=== PATIENT | male | born 1950 | race Caucasian/White ===

== ENCOUNTER 2016-08-16 11:42 | Inpatient (IN) | payer OTHER, BC ==
[~2016-08-16] VITALS: Ht 185.4 cm; Wt 158.3 kg
[~2016-08-16 11:42] MED LIST: ASTEPRO 0.15%30 ML NS; CYCLOBENZAPRINE10 MG PO; CYMBALTA60 MG PO; Cymbalta PO; DILAUDID4 MG PO; EXFORGE PO; FLOMAX0.4 MG PO; GLUCOTROL XL5 MG PO; HYDROCODON-ACE1 EAC8 PO; JANUMET 50/11 TABLET PO; Januvia PO; LASIX20 MG PO; LEVAQUIN750 MG PO; NAPROXEN500 M2 PO; OxyCONTIN PO; PRILOSEC40 MG PO; Prevacid PO; TRILIPIX135 MG PO
[2016-08-16 13:40] LABS: HEMATOCRIT 44.6 % (38.0-50.0); MCH 29.9 PG (29.0-34.0); MCHC 32.3 G/DL (30.0-36.0); MCV 92.5 FL (86-99); MEAN PLAT.VOLUME 9.2 uM^3 (9.0-12.4); PLATELET COUNT 325 K/uL (156-360); RBC DIS.WIDTH-CV 12.5 % (11.8-14.6); RBC DIS.WIDTH-SD 43.2 % (39-53); RED BLOOD COUNT 4.82 M/uL (4.00-5.50); WHITE BLOOD COUNT 14.8 K/uL (4.1-10.2)
[2016-08-16 13:56] LABS: CHLORIDE 96 mEq/L (99-109); POTASSIUM 4.1 mEq/L (3.7-5.4); SODIUM 137 mEq/L (136-147)
[2016-08-16 13:59] LABS: GLUCOSE 114 mg/dL (70-99)
[2016-08-16 14:00] LABS: ANION GAP 11 MEQ/L (2-14); D-DIMER ELISA > 4.00 mg/L FEU (< 0.57)
[2016-08-16 14:01] LABS: TOTAL BILIRUBIN 0.8 mg/dL (0.0-1.0)
[2016-08-16 14:02] LABS: ALKALINE PHOSPHATASE 121 IU/L (3-129); GFR ESTIMATE (CALCULATED) > 59 mL/min/
[2016-08-16 14:03] LABS: UREA NITROGEN (BUN) 29 mg/dL (9-23)
[2016-08-16 14:06] LABS: LIPASE 10 U/L (1.0-51.0); TROP-I INTERPRETATION NEGATIVE; TROPONIN-I < 0.01 ng/mL (0.0-0.30)
[2016-08-16 19:42] VITALS: BP 159/71
[2016-08-16 21:09] LABS: POINT-OF-CARE METER ID UU13113725
[2016-08-16 23:28] VITALS: BP 141/69
[2016-08-17 02:45] VITALS: BP 135/70
[2016-08-17 06:49] LABS: EOSINOPHIL (%) 0 % (0-5); HEMATOCRIT 37.5 % (38.0-50.0); IMMATURE GRANULOCYTE (%) 2.1 % (0.0-0.7); IMMATURE GRANULOCYTE COUNT 0.4 K/uL; MCH 29.8 PG (29.0-34.0); MCV 93.1 FL (86-99); MEAN PLAT.VOLUME 9.4 uM^3 (9.0-12.4); MONOCYTE (%) 4.4 % (3-12); MONOCYTE COUNT 0.8 K/uL (0-0.8); NEUTROPHIL (%) 88.2 % (45-76); PLATELET COUNT 379 K/uL (156-360); RBC DIS.WIDTH-CV 12.5 % (11.8-14.6); RED BLOOD COUNT 4.03 M/uL (4.00-5.50); WHITE BLOOD COUNT 19.3 K/uL (4.1-10.2)
[2016-08-17 06:54] LABS: ALKALINE PHOSPHATASE 119 IU/L (3-129); ANION GAP 10 MEQ/L (2-14); CHLORIDE 96 MEQ/L (99-109); GFR ESTIMATE (CALCULATED) > 59 mL/min/; POTASSIUM 4.7 MEQ/L (3.7-5.4); SAMPLE HEMOLYSIS CHECK 0; SAMPLE ICTERIC CHECK 0; SAMPLE LIPEMIA CHECK 0; SODIUM 138 MEQ/L (136-147); TOTAL BILIRUBIN 0.5 MG/DL (0.0-1.0); UREA NITROGEN (BUN) 30 mg/dL (9-23)
[2016-08-17 07:00] LABS: GLUCOSE 233 mg/dL (70-99)
[2016-08-17 07:25] VITALS: BP 127/91
[2016-08-17 07:40] LABS: INTER. NORMALIZED RATIO 1.2; PROTHROMBIN TIME 12.3 (9.2-11.2); PTT 25.1 (25-32)
[2016-08-17 15:44] VITALS: BP 140/89
[2016-08-17 21:04] VITALS: BP 142/65
[2016-08-18 01:04] VITALS: BP 117/57
[2016-08-18 06:34] LABS: POINT-OF-CARE METER ID UU13113725
[2016-08-18 07:15] VITALS: BP 130/60
[2016-08-18 07:21] LABS: ANION GAP 13 MEQ/L (2-14); CHLORIDE 92 MEQ/L (99-109); GFR ESTIMATE (CALCULATED) > 59 mL/min/; GLUCOSE 126 mg/dL (70-99); POTASSIUM 4.6 MEQ/L (3.7-5.4); SAMPLE HEMOLYSIS CHECK 0; SAMPLE ICTERIC CHECK 0; SAMPLE LIPEMIA CHECK 0; SODIUM 136 MEQ/L (136-147); UREA NITROGEN (BUN) 33 mg/dL (9-23)
[2016-08-18 10:32] LABS: POINT-OF-CARE METER ID UU13113725
[2016-08-18 10:32] LABS: POINT-OF-CARE METER ID UU13113725
[2016-08-18 11:24] VITALS: BP 120/61
[2016-08-18] MEDS ORDERED: JANUVIA25 M1 PO (11:52)
[2016-08-18] MEDS ORDERED: EXFORGE 5/161 TABLET PO (11:52)
[2016-08-18] MEDS ORDERED: ANORO ELLIPTA1 EACH IH (11:53)
[2016-08-18] MEDS ORDERED: NEXIUM20 MG PO (11:53)
[2016-08-18] MEDS ORDERED: DALIRESP500 MCG PO (11:54)
[2016-08-18] MEDS ORDERED: LEVEMIR FL100 UNIT/1 SC (11:54)
[2016-08-18] MEDS ORDERED: CYMBALTA60 MG PO (11:54)
[2016-08-18] MEDS ORDERED: NOVOLOG PE100 UNITS/ SC (11:54)
[2016-08-18] MEDS ORDERED: DITROPAN XL10 MG PO (11:55)
[2016-08-18] MEDS ORDERED: NORCO 7.5/321 TABLET PO (11:55)
[2016-08-18] MEDS ORDERED: MS CONTIN,ORAMO15 M1 PO (11:55)
[2016-08-18] MEDS ORDERED: AMITIZA24 MICROGR PO (11:56)
[2016-08-18] MEDS ORDERED: MOBIC15 MG PO (11:56)
[2016-08-18] MEDS ORDERED: CENTRUM ADULTS1 EACH PO (11:58)
[2016-08-18] MEDS ORDERED: NITROFURANTOIN100 M3 PO (11:58)
[2016-08-18] MEDS ORDERED: METAMUCIL0.52 GM PO (11:58)
[2016-08-18] MEDS ORDERED: BENFOTIAMINE PO (12:00)
[2016-08-18 15:54] LABS: TYPE OF FLUID PLEURAL
[2016-08-18 16:40] VITALS: BP 178/79
[2016-08-18 16:53] LABS: WBC AREA COUNTED 0.4
[2016-08-18 16:58] LABS: BODY FLUID PROTEIN 3.4 G/DL
[2016-08-18 16:59] LABS: BODY FLUID LDH > 12000 IU/L
[2016-08-18 17:26] LABS: BODY FLUID RBC'S 1200 /MM^3 (0-100); BODY FLUID WBC'S 325500 /MM^3 (0-500); RED CELL AREA COUNTED 2; RED CELL DILUTION 20; WBC DILUTION 20; WHITE CELL RAW COUNT 651
[2016-08-18 18:27] LABS: BODY FLUID EOSINOPHILS 0 % (0-25); MONO RAW COUNT 5; MONONUCLEAR WBC'S 5 %; POLY RAW COUNT 95; POLYNUCLEAR WBC'S 95 % (0-25)
[2016-08-18 19:25] VITALS: BP 134/62
[2016-08-18 21:10] LABS: POINT-OF-CARE METER ID UU13113725
[2016-08-18 23:43] VITALS: BP 133/63
[2016-08-19 03:35] VITALS: BP 134/62; BP 154/63
[2016-08-19 05:47] LABS: POINT-OF-CARE METER ID UU13113725
[2016-08-19 06:27] LABS: BASOPHIL COUNT 0.1 K/uL (0-0.1); EOSINOPHIL (%) 0.3 % (0-5); HEMATOCRIT 37.2 % (38.0-50.0); IMMATURE GRANULOCYTE (%) 3.8 % (0.0-0.7); IMMATURE GRANULOCYTE COUNT 0.6 K/uL; INSTRUMENT ABS NEUTROPHIL CT 10.7 K/uL; LYMPHOCYTE COUNT 2.1 K/uL (1.0-2.8); MCH 29.8 PG (29.0-34.0); MCHC 31.7 G/DL (30.0-36.0); MCV 93.9 FL (86-99); MEAN PLAT.VOLUME 9.2 uM^3 (9.0-12.4); MONOCYTE (%) 6.1 % (3-12); MONOCYTE COUNT 0.9 K/uL (0-0.8); NEUTROPHIL (%) 74.5 % (45-76); NEUTROPHIL COUNT 10.7 K/uL (1.8-6.4); PLATELET COUNT 431 K/uL (156-360); RBC DIS.WIDTH-CV 12.5 % (11.8-14.6); RBC DIS.WIDTH-SD 43.4 % (39-53); RED BLOOD COUNT 3.96 M/uL (4.00-5.50); WHITE BLOOD COUNT 14.3 K/uL (4.1-10.2)
[2016-08-19 06:50] LABS: ANION GAP 8 MEQ/L (2-14); CHLORIDE 94 MEQ/L (99-109); GFR ESTIMATE (CALCULATED) > 59 mL/min/; GLUCOSE 136 mg/dL (70-99); POTASSIUM 4.3 MEQ/L (3.7-5.4); SAMPLE HEMOLYSIS CHECK 0; SAMPLE ICTERIC CHECK 0; SAMPLE LIPEMIA CHECK 0; SODIUM 138 MEQ/L (136-147); UREA NITROGEN (BUN) 25 mg/dL (9-23)
[2016-08-19 07:26] VITALS: BP 118/86
[2016-08-19 11:29] LABS: POINT-OF-CARE METER ID UU13113725
[2016-08-19 11:38] VITALS: BP 142/71
[2016-08-19 15:46] VITALS: BP 111/55
[2016-08-19 16:13] LABS: POINT-OF-CARE METER ID UU13113725
[2016-08-19 19:14] VITALS: BP 115/57
[2016-08-19 22:53] VITALS: BP 148/68
[2016-08-20 02:44] LABS: BODY FLUID PH 6.2 (())
[2016-08-20 03:24] VITALS: BP 133/65
[2016-08-20 05:34] LABS: POINT-OF-CARE METER ID UU13113725
[2016-08-20 06:39] LABS: EOSINOPHIL (%) 0.7 % (0-5); EOSINOPHIL COUNT 0.1 K/uL (0-0.3); HEMATOCRIT 34.9 % (38.0-50.0); IMMATURE GRANULOCYTE (%) 3.2 % (0.0-0.7); IMMATURE GRANULOCYTE COUNT 0.4 K/uL; INSTRUMENT ABS NEUTROPHIL CT 10.7 K/uL; LYMPHOCYTE COUNT 1.5 K/uL (1.0-2.8); MCH 30.8 PG (29.0-34.0); MCHC 32.4 G/DL (30.0-36.0); MCV 95.1 FL (86-99); MEAN PLAT.VOLUME 9.5 uM^3 (9.0-12.4); MONOCYTE COUNT 0.7 K/uL (0-0.8); NEUTROPHIL (%) 79.7 % (45-76); NEUTROPHIL COUNT 10.7 K/uL (1.8-6.4); PLATELET COUNT 394 K/uL (156-360); RBC DIS.WIDTH-CV 12.4 % (11.8-14.6); RBC DIS.WIDTH-SD 43.3 % (39-53); RED BLOOD COUNT 3.67 M/uL (4.00-5.50); WHITE BLOOD COUNT 13.5 K/uL (4.1-10.2)
[2016-08-20 07:01] LABS: ANION GAP 7 MEQ/L (2-14); CHLORIDE 97 MEQ/L (99-109); GFR ESTIMATE (CALCULATED) > 59 mL/min/; GLUCOSE 145 mg/dL (70-99); POTASSIUM 4.2 MEQ/L (3.7-5.4); SAMPLE HEMOLYSIS CHECK 0; SAMPLE ICTERIC CHECK 0; SAMPLE LIPEMIA CHECK 0; SODIUM 138 MEQ/L (136-147); UREA NITROGEN (BUN) 21 mg/dL (9-23)
[2016-08-20 07:36] VITALS: BP 116/57
[2016-08-20] MEDS ORDERED: AMITIZA24 MICROGR PO (09:35)
[2016-08-20] MEDS ORDERED: FLAGYL500 MG PO (09:36)
[2016-08-20] MEDS ORDERED: CIPRO500 MG PO (09:37)
== END 2016-08-20 12:28 | disposition home health service (06) | DRG 187 ==
LOC: EME 11:42 → EDOF 16:30 → 5EAST 16:30
PROVIDERS: Family Medicine; Nurse Practitioner Family; Radiology Diagnostic Radiology
PROC: 0W9B3ZZ Drainage of Left Pleural Cavity, Percutaneous Approach (ICD-10-PCS; principal; 2016-08-16)
DX: J90 Pleural effusion, not elsewhere classified (principal); J44.1 Chronic obstructive pulmonary disease with (acute) exacerbation; R09.02 Hypoxemia; D72.829 Elevated white blood cell count, unspecified; G89.29 Other chronic pain; M54.6 Pain in thoracic spine; E11.40 Type 2 diabetes mellitus with diabetic neuropathy, unspecified; K59.00 Constipation, unspecified; T40.2X5A Adverse effect of other opioids, initial encounter; E66.01 Morbid (severe) obesity due to excess calories; E78.5 Hyperlipidemia, unspecified; E11.65 Type 2 diabetes mellitus with hyperglycemia; K21.9 Gastro-esophageal reflux disease without esophagitis; I10 Essential (primary) hypertension; G47.30 Sleep apnea, unspecified; Z99.81 Dependence on supplemental oxygen; Z79.4 Long term (current) use of insulin; Z68.42 Body mass index [BMI] 45.0-49.9, adult; Z79.891 Long term (current) use of opiate analgesic; Z87.891 Personal history of nicotine dependence; Z87.01 Personal history of pneumonia (recurrent)
CPT/HCPCS: 32555; 71020; 71275; 80048; 80053; 81003; 82565; 82945; 82948; 83615 91; 83690; 83880; 83986 90; 84157; 84484; 84520; 85025; 85027; 85379; 85610; 85730; 87040; 87070; 87075; 87076; 87205; 88108; 88305; 89051; 93005; 94640; 94640 76; 94660; 94760; 94799; 99202; 99281; 99285; J0456; J0696; J1815; J1940; J2405; J2930; J3010; J7030; J7050

== ENCOUNTER 2016-09-01 15:33 | Inpatient (IN) | payer OTHER, BC ==
[~2016-09-01 15:33] MED LIST changes: +AMITIZA24 MICROGR PO; +ANORO ELLIPTA1 EACH IH; +BENFOTIAMINE PO; +CENTRUM ADULTS1 EACH PO; +CIPRO500 MG PO; +DALIRESP500 MCG PO; +DITROPAN XL10 MG PO; +EXFORGE 5/161 TABLET PO; +FLAGYL500 MG PO; +JANUVIA25 M1 PO; +LEVEMIR FL100 UNIT/1 SC; +METAMUCIL0.52 GM PO; +MOBIC15 MG PO; +MS CONTIN,ORAMO15 M1 PO; +NEXIUM20 MG PO; +NITROFURANTOIN100 M3 PO; +NORCO 7.5/321 TABLET PO; +NOVOLOG PE100 UNITS/ SC
[2016-09-01 16:06] LABS: MCH 29.9 PG (29.0-34.0); MCHC 32.1 G/DL (30.0-36.0); MCV 93.2 FL (86-99); MEAN PLAT.VOLUME 9.1 uM^3 (9.0-12.4); PLATELET COUNT 283 K/uL (156-360); RBC DIS.WIDTH-CV 12.6 % (11.8-14.6); RBC DIS.WIDTH-SD 42.9 % (39-53); RED BLOOD COUNT 3.65 M/uL (4.00-5.50); WHITE BLOOD COUNT 9.7 K/uL (4.1-10.2)
[2016-09-01 16:18] LABS: CHLORIDE 101 mEq/L (99-109); POTASSIUM 4.4 mEq/L (3.7-5.4); SODIUM 137 mEq/L (136-147)
[2016-09-01 16:19] LABS: GLUCOSE 153 mg/dL (70-99)
[2016-09-01 16:21] LABS: ANION GAP 9 MEQ/L (2-14)
[2016-09-01 16:23] LABS: GFR ESTIMATE (CALCULATED) > 59 mL/min/
[2016-09-01 16:24] LABS: UREA NITROGEN (BUN) 14 mg/dL (9-23)
[2016-09-01 16:29] LABS: TROP-I INTERPRETATION NEGATIVE; TROPONIN-I < 0.01 ng/mL (0.0-0.30)
[2016-09-01] MEDS ORDERED: NEXIUM 24HR20 MG PO (19:48)
[2016-09-01] MEDS ORDERED: DITROPAN XL10 MG PO (19:49)
[2016-09-01] MEDS ORDERED: AMITIZA24 MICROGR PO (19:50)
[2016-09-01] MEDS ORDERED: CEFUROXIME500 MG PO (19:54)
[2016-09-01] MEDS ORDERED: NYSTATIN100000 UN1 PO (19:54)
[2016-09-01] MEDS ORDERED: VENTOLIN HFA18 GM IH (19:54)
[2016-09-02 00:30] VITALS: BP 128/61
[2016-09-02 04:43] VITALS: BP 111/56
[2016-09-02 05:57] LABS: HEMATOCRIT 31.5 % (38.0-50.0); MCH 30.7 PG (29.0-34.0); MCHC 32.4 G/DL (30.0-36.0); MCV 94.9 FL (86-99); MEAN PLAT.VOLUME 9.4 uM^3 (9.0-12.4); PLATELET COUNT 264 K/uL (156-360); RBC DIS.WIDTH-CV 12.9 % (11.8-14.6); RBC DIS.WIDTH-SD 44.5 % (39-53); RED BLOOD COUNT 3.32 M/uL (4.00-5.50); WHITE BLOOD COUNT 8.2 K/uL (4.1-10.2)
[2016-09-02 06:20] LABS: ANION GAP 8 MEQ/L (2-14); CHLORIDE 101 MEQ/L (99-109); GFR ESTIMATE (CALCULATED) > 59 mL/min/; POTASSIUM 4.2 MEQ/L (3.7-5.4); SAMPLE HEMOLYSIS CHECK 0; SAMPLE ICTERIC CHECK 0; SAMPLE LIPEMIA CHECK 0; SODIUM 139 MEQ/L (136-147); UREA NITROGEN (BUN) 14 mg/dL (9-23)
[2016-09-02 06:26] LABS: GLUCOSE 109 mg/dL (70-99)
[2016-09-02 07:16] VITALS: BP 119/64
[2016-09-02 11:20] VITALS: BP 107/54
[2016-09-02 16:51] VITALS: BP 120/61
[2016-09-03 00:52] VITALS: BP 98/57
[2016-09-03 09:11] VITALS: BP 116/62
[2016-09-03 12:02] VITALS: BP 128/69
[2016-09-03 17:53] VITALS: BP 123/59
[2016-09-03 20:20] VITALS: BP 142/64
[2016-09-04 00:29] VITALS: BP 130/68
[2016-09-04 08:05] VITALS: BP 121/74
[2016-09-04 21:52] VITALS: BP 147/77
[2016-09-04 22:09] LABS: POINT-OF-CARE METER ID UU13113725
[2016-09-05 07:37] VITALS: BP 128/60
[2016-09-05 15:40] VITALS: BP 132/63
[2016-09-05 22:22] LABS: POINT-OF-CARE METER ID UU13113725
[2016-09-06 08:52] VITALS: BP 147/70
[2016-09-06 17:44] VITALS: BP 136/69
[2016-09-06 22:10] VITALS: BP 142/65
[2016-09-07 06:58] LABS: HEMATOCRIT 35.4 % (38.0-50.0); MCH 29.4 PG (29.0-34.0); MCHC 31.4 G/DL (30.0-36.0); MCV 93.9 FL (86-99); MEAN PLAT.VOLUME 9.4 uM^3 (9.0-12.4); PLATELET COUNT 314 K/uL (156-360); RBC DIS.WIDTH-CV 12.9 % (11.8-14.6); RBC DIS.WIDTH-SD 43.9 % (39-53); RED BLOOD COUNT 3.77 M/uL (4.00-5.50); WHITE BLOOD COUNT 11.3 K/uL (4.1-10.2)
[2016-09-07 07:32] LABS: ANION GAP 9 MEQ/L (2-14); CHLORIDE 100 MEQ/L (99-109); GFR ESTIMATE (CALCULATED) > 59 mL/min/; GLUCOSE 226 mg/dL (70-99); POTASSIUM 4.7 MEQ/L (3.7-5.4); SAMPLE HEMOLYSIS CHECK 0; SAMPLE ICTERIC CHECK 0; SAMPLE LIPEMIA CHECK 0; SODIUM 139 MEQ/L (136-147)
[2016-09-07 07:35] LABS: UREA NITROGEN (BUN) 23 mg/dL (9-23)
[2016-09-07 23:20] VITALS: BP 150/72
[2016-09-08 08:09] VITALS: BP 162/78
[2016-09-08 23:29] VITALS: BP 173/74
[2016-09-09 08:00] VITALS: BP 146/82
[2016-09-09 11:57] VITALS: BP 139/69
[2016-09-09 16:00] VITALS: BP 126/1
[2016-09-09 23:18] VITALS: BP 125/61
[2016-09-10 06:02] LABS: HEMATOCRIT 31.7 % (38.0-50.0); MCH 31.5 PG (29.0-34.0); MCHC 33.4 G/DL (30.0-36.0); MCV 94.3 FL (86-99); MEAN PLAT.VOLUME 9.1 uM^3 (9.0-12.4); PLATELET COUNT 239 K/uL (156-360); RBC DIS.WIDTH-CV 13.3 % (11.8-14.6); RBC DIS.WIDTH-SD 45.7 % (39-53); RED BLOOD COUNT 3.36 M/uL (4.00-5.50); WHITE BLOOD COUNT 7.4 K/uL (4.1-10.2)
[2016-09-10 06:34] LABS: ANION GAP 8 MEQ/L (2-14); CHLORIDE 101 MEQ/L (99-109); GFR ESTIMATE (CALCULATED) > 59 mL/min/; GLUCOSE 259 mg/dL (70-99); POTASSIUM 4.3 MEQ/L (3.7-5.4); SAMPLE HEMOLYSIS CHECK 0; SAMPLE ICTERIC CHECK 0; SAMPLE LIPEMIA CHECK 0; SODIUM 140 MEQ/L (136-147); UREA NITROGEN (BUN) 14 mg/dL (9-23)
[2016-09-10 08:00] VITALS: BP 167/79
[2016-09-10 12:13] VITALS: BP 162/78
[2016-09-10] MEDS ORDERED: AUGMENTIN875 MG PO (15:23)
== END 2016-09-10 17:18 | disposition home health service (06) | DRG 166 ==
LOC: EME 15:33 → 5EAST 19:03 → EDOF 19:03 → 5EAST 09-02 00:44
PROVIDERS: Family Medicine; Physician Assistant; Thoracic Surgery (Cardiothoracic Vascular Surgery)
DX: J86.9 Pyothorax without fistula (principal); J96.11 Chronic respiratory failure with hypoxia; J90 Pleural effusion, not elsewhere classified; J18.9 Pneumonia, unspecified organism; B37.0 Candidal stomatitis; E11.42 Type 2 diabetes mellitus with diabetic polyneuropathy; E11.649 Type 2 diabetes mellitus with hypoglycemia without coma; E11.65 Type 2 diabetes mellitus with hyperglycemia; E29.1 Testicular hypofunction; Z86.718 Personal history of other venous thrombosis and embolism; E78.5 Hyperlipidemia, unspecified; F32.9 Major depressive disorder, single episode, unspecified; G47.00 Insomnia, unspecified; G47.33 Obstructive sleep apnea (adult) (pediatric); G89.4 Chronic pain syndrome; I10 Essential (primary) hypertension; J44.0 Chronic obstructive pulmonary disease with (acute) lower respiratory infection; J44.1 Chronic obstructive pulmonary disease with (acute) exacerbation; J98.11 Atelectasis; K21.0 Gastro-esophageal reflux disease with esophagitis; K59.03 Drug induced constipation; T40.2X5A Adverse effect of other opioids, initial encounter; N40.1 Benign prostatic hyperplasia with lower urinary tract symptoms; N13.8 Other obstructive and reflux uropathy; N32.81 Overactive bladder; Z87.440 Personal history of urinary (tract) infections; Z79.4 Long term (current) use of insulin; Z79.84 Long term (current) use of oral hypoglycemic drugs; Z87.891 Personal history of nicotine dependence; Z99.81 Dependence on supplemental oxygen; E66.01 Morbid (severe) obesity due to excess calories; Z68.42 Body mass index [BMI] 45.0-49.9, adult; J95.71 Accidental puncture and laceration of a respiratory system organ or structure during a respiratory system procedure; S27.808A Other injury of diaphragm, initial encounter; Y65.8 Other specified misadventures during surgical and medical care; Y92.239 Unspecified place in hospital as the place of occurrence of the external cause
CPT/HCPCS: 71010; 71020; 71250; 80048; 82948; 84484; 85027; 87070; 87075; 87205; 93005; 94640; 94640 76; 94760; 94799; 97530 GO; 99202; 99281; 99285; C1729; J1170; J1644; J1650; J1815; J2250; J2405; J2543; J2920; J3010; J7050; J7120; J7512